=== PATIENT | female | born 1960 | race Caucasian/White ===

== ENCOUNTER 2022-02-13 16:45 | Emergency (ER) | payer MEDICARE, SELFPAY ==
[2022-02-13 16:55] VITALS: BP 114/50; PULSE 54; RESP 14; TEMP 36.8; O2SAT 100
[2022-02-13 17:12] VITALS: BP 114/50; PULSE 54; RESP 14; TEMP 36.8; O2SAT 100
--- NOTE | 2022-02-13 17:34 | ED.ABDPAIN ---
HPI - Abdominal Pain General Chief Complaint: Abdominal Pain Stated Complaint: Abdomainal Pain Time Seen by Provider: 02/13/22 17:34 Source: patient Mode of arrival: ambulatory Limitations: no limitations History of Present Illness HPI narrative: 61-year-old female presents with complaint of abdominal cramping and sweating that started approximately 30 minutes after eating fried beef and onions that she cooked herself. States that she had the beef in her refrigerator and it was discolored but did not have any odor to it. States the use by date was February 22 so it should have still been good. Reports mild nausea. States that abdominal cramping was severe . Since getting to urgent care symptoms are improving. Denies diarrhea and vomiting. All systems reviewed and negative except as noted above. Related Data Home Medications Medication Instructions Recorded Confirmed adalimumab 40 mg/0.8 mL 40 mg subcut MONTHLY 02/13/22 02/13/22 subcutaneous pen kit (Humira Pen) alendronate 70 mg tablet 70 mg PO DAILY 02/13/22 02/13/22 estradiol 0.5 mg tablet 0.5 mg PO DAILY 02/13/22 02/13/22 folic acid 1 mg tablet 1 mg PO DAILY 02/13/22 02/13/22 levothyroxine 50 mcg tablet 50 mcg PO DAILY 02/13/22 02/13/22 (Synthroid) meloxicam 15 mg tablet 15 mg PO DAILY 02/13/22 02/13/22 methotrexate sodium 2.5 mg tablet 2.5 mg PO WEEKLY 02/13/22 02/13/22 progesterone micronized 100 mg 100 mg PO QAM 02/13/22 02/13/22 capsule Allergies Allergy/AdvReac Type Severity Reaction Status Date / Time ezetimibe [From Zetia] Allergy Cramping Verified 02/13/22 17:08 of the Muscles Review of Systems Review of Systems: CONSTITUTIONAL: Denies fever, chills, or sweats. EYES: Denies visual changes, redness, or discharge. ENT: Denies rhinorrhea, congestion, sore throat, or otalgia. CARDIOVASCULAR: Denies chest pain, palpitations, or edema. RESPIRATORY: Denies cough or dyspnea. GASTROINTESTINAL: Reports abdominal pain, nausea. Denies vomiting, or diarrhea. GENITOURINARY: Denies dysuria or hematuria. SKIN: Denies rash or itching. MUSCULOSKELETAL: Denies back pain, joint pain, or myalgia. NEUROLOGIC: Denies headache, numbness, or weakness. PSYCHIATRIC: Denies anxiety or depression. All other systems reviewed are negative, except as documented in HPI. PMFSH Social History Social History Smoking status: Current every day smoker Alcohol intake: never Comments At time of signature, agree with nursing past medical, surgical, social and family history. There is no relevant family history pertinent to the presenting complaint. Exam Narrative: GENERAL: This is a well-nourished, well-developed patient, in no apparent distress. HEAD: normocephalic, atraumatic. EYES: PERRL. Sclera clear/white. Vision is grossly intact. EARS: External ears normal NOSE: External nose normal NECK: Neck supple, non-tender without lymphadenopathy, masses or thyromegaly. CARDIOVASCULAR: Regular rate and rhythm without murmurs, gallops, or rubs. RESPIRATORY: Clear to auscultation. Breath sounds equal bilaterally. No wheezes, rales, or rhonchi. GASTROINTESTINAL: Abdomen soft, non-tender, nondistended. Bowel sounds are active. No hepato-splenomegaly, or palpable masses. No guarding. SKIN: warm, Dry, intact with no suspicious lesions or rash, good texture and turgor. NEURO: awake, alert, and oriented to person, place and time. There were no obvious focal neurologic abnormalities. EXTREMITIES: No joint tenderness, effusion, or edema noted. Course Course Level of Care: Express Care Visit Vital Signs Vital signs: Vital Signs Temperature 36.8 C 02/13/22 16:55 Pulse Rate 54 L 02/13/22 16:55 Respiratory Rate 14 02/13/22 16:55 Blood Pressure 114/50 L 02/13/22 16:55 Pulse Oximetry 100 02/13/22 16:55 Oxygen Delivery Room Air 02/13/22 16:55 Temperature 36.8 C 02/13/22 17:12 Pulse Rate 54 L 02/13/22 17:12 Respiratory Rate 14 02/13/22 17:
== END 2022-02-13 17:50 | disposition home or self-care (01) ==
PROVIDERS: Emergency Provider Nurse Practitioner Family
DX: R10.9 Unspecified abdominal pain (principal); F17.200 Nicotine dependence, unspecified, uncomplicated; K21.9 Gastro-esophageal reflux disease without esophagitis; M06.9 Rheumatoid arthritis, unspecified; E03.9 Hypothyroidism, unspecified
CPT/HCPCS: 99203; G0463